=== PATIENT | female | born 1945 | race African-American/Black ===

== ENCOUNTER 2017-03-25 06:56 | Inpatient (IN) ==
[2017-03-25] MEDS ORDERED: NS 1,000 ML IV ONE (07:18)
[2017-03-25] MEDS ORDERED: MORPHINE IV ONE ×2 (07:18→10:46)
[2017-03-25] MEDS ORDERED: ZOFRAN IV ONE (07:18)
[2017-03-25 07:23] LABS: MANUAL DIFF NEEDED? NO
[2017-03-25 07:27] LABS: BASO% 0.4 % (0.0-0.8); EOS# 0.15 X1000 (0.0-0.7); EOS% 1.9 % (0.0-10.0); HEMATOCRIT 38.9 % (37.0-47.0); HEMOGLOBIN 12.9 g/dL (12.0-16.0); IMM GRAN# 0.02 X1000 (0.0-0.04); IMM GRAN% 0.3 % (0.0-0.5); LYMPH# 2.08 X1000 (1.2-3.4); LYMPH% 26.5 % (20.5-51.1); MCH 28.6 PG (27-31); MCHC 33.2 g/dL (33-37); MCV 86.3 FL (81-99); MONO# 0.58 X1000 (0.11-0.59); MONO% 7.4 % (1.7-9.3); MPV 12.1 FL (7.4-10.4); NEUT% 63.5 % (42.2-75.2); PLT 271 X1000 (130-400); RBC 4.51 XMIL (4.2-5.4)
--- NOTE | 2017-03-25 07:33 | PROVIDER DOCUMENTATION ---
HPI-Abdominal Pain/GI Problem - General Chief Complaint: Abdominal Pain Stated Complaint: VOMITING/ABD PAIN Time Seen by Provider: 03/25/17 07:10 Source: patient, family Allergies/Adverse Reactions: Patient Allergies Allergy/AdvReac Type Severity Reaction Status Date / Time No Known Allergies Allergy Verified 03/25/17 07:08 - History of Present Illness-ABD Nature of Presenting Problems: Reports epigastric pain since 2 days ago with V X 1 GEOPH[employer]ICAL [employer]OSPECTING [employer]MIT [employer]ENT. Denies F/C/CP/SOB/ dysuria. Reports h/o the same in the past, but could not tell the diagnosis. Reports h/o cardiac stent X 5 years ago. Denies cardiac issues since then. Abdominal Pain Onset Location: reports: epigastric Pain Radiation: reports: no radiation Quality of Pain: reports: aching, cramping, sharp Severity in ED: reports: moderate Onset/Duration: reports: 2 days ago Timing: reports: still present Activities at Onset: reports: none, light activity Exposure to sick contacts?: No Modifying Factors: improves with: nothing Associated Symptoms: reports: malaise, vomiting. denies: chest pain, constipation, cough, dizziness, rash, seizure, shortness of breath, trouble walking Dark Stools Present?: reports: none noticed Rectal Bleeding: reports: none # of Diarrhea Episodes: 0 Rectal Pain: reports: none # of Vomiting Episodes: 1 Emesis Description: reports: none Bruising or Bleeding Gums?: No Similar Symptoms Previously?: Yes Recently seen or treated by another doctor?: No Review of Systems - Adult - REVIEW OF SYSTEMS - ADULT Constitutional: reports: no symptoms reported Eyes: reports: no symptoms reported Ears, Nose, Mouth & Throat: reports: no symptoms reported Cardiovascular: reports: no symptoms reported. denies: chest pain, orthopnea, PND, syncope Respiratory: reports: no symptoms reported. denies: cough Gastrointestinal: reports: see HPI, abdominal pain, nausea, vomiting. denies: diarrhea Genitourinary: reports: no symptoms reported Musculoskeletal: reports: no symptoms reported Integumentary: reports: no symptoms reported Neurological: reports: no symptoms reported Psychiatric: reports: no symptoms reported Endocrine: reports: no symptoms reported Hematologic/Lymphatic: reports: no symptoms reported Allergic/Immunologic: reports: no symptoms reported All Other Systems: Reviewed and Negative Past History - Adult - PAST MEDICAL HISTORY-ADULT Review of Records: reports: Old Records Reviewed, Nursing Assessment Review, Medications Reviewed, Social history reviewed & non-contributory. Physical Exam-General - PHYSICAL EXAM-ADULT Initial Vital Signs Reviewed: Yes - CONSTITUTIONAL General Appearance: appears well, alert, no apparent distress - EYES Eyes: PERRL/EOMI, pink conjunctivae - HEAD, EARS, NOSE, MOUTH & THROAT HENMT: normocephalic/atraumatic, moist mucous membranes - NECK Neck: non-tender, full range of motion, supple - RESPIRATORY Respiratory: chest non-tender, lungs clear, normal breath sounds, no pleuratic chest pain, no respiratory distress, no accessory muscle use - CARDIOVASCULAR Cardiovascular: normal peripheral pulses, regular rate, rhythm, no edema, no gallop, no JVD, no murmur - GASTROINTESTINAL (ABDOMEN) Abdominal Exam: normal bowel sounds, soft, no organomegaly, tenderness ( Diffused epigastric tenderness, no guarding and no rebound.). negative: abdominal bruit, distended, guarding, rigid, rebound, McBurney's point tenderness, Guerrero's sign, Rovsing's sign - LYMPHATIC Lymphatic: no adenopathy - MUSCULOSKELETAL Back Exam: normal inspection, no CVA tenderness Extremity: normal range of motion, non-tender, normal gait, normal inspection - SKIN Integumentary: normal color, normal turgor, warm/dry - NEUROLOGIC Neurologic: no motor/sensory deficits - PSYCHIATRIC Psych/Mental Status: normal mood/affect, normal thought content, normal thought process, oriented x 3 Progress - PLAN OF CARE/RESULTS Progress/Plan/Lab Results: Vital Signs - 8 hr 03/25/17 07:04 Temperature 98.2 F Pulse Rate 77 Respiratory Rate 16 Blood Pressure 179/98 O2 Sat by Pulse Oximetry 95 Laboratory Results - last 24 hr 03/25/17 07:15 WBC 7.85 RBC 4.51 Hgb 12.9 Hct 38.9 MCV 86.3 MCH 28.6 MCHC 33.2 RDW Std Deviation 16.0 H Plt Count 271 MPV 12.1 H Immature Gran % (Auto) 0.3 Neut % (Auto) 63.5 Lymph % (Auto) 26.5 [place] % (Auto) 7.4 Eos % (Auto) 1.9 Baso % (Auto) 0.4 Immature Gran # (Auto) 0.02 Neut # (Auto) 4.99 Lymph # (Auto) 2.08 [place] # (Auto) 0.58 Eos # (Auto) 0.15 Baso # (Auto) 0.03 Orders Category Date Time Status Saline Loc DIRECTED Care 03/25/17 07:10 Active NPO Diet 03/25/17 07:10 Active AMYLASE [CHEM] Stat Lab 03/25/17 07:15 Received BNP [PRO B-NATRIURETIC PEPTIDE] Stat Lab 03/25/17 07:15 Received CBC WITH ELECTRONIC DIFF [HEME] Stat Lab 03/25/17 07:15 Completed COMPREHENSIVE METABOLIC PANEL [CHEM] Stat Lab 03/25/17 07:15 Received D-DIMER [address] [COAG] Stat Lab 03/25/17 07:15 Received LIPASE [CHEM] Stat Lab 03/25/17 07:15 Received MAGNESIUM [CHEM] Stat Lab 03/25/17 07:15 Received TROPONIN T Stat Lab 03/25/17 07:[address] W/POSS RFLX CULT [URINALYSIS] Stat Lab 03/25/17 07:21 Ordered 0.9% Sodium Chloride Inj [Ns] 1,000 ml Med 03/25/17 07:18 Active IV 250 mls/hr Morphine Med 03/25/17 07:18 Discontinued 4 mg IV NOW ONE Ondansetron [Zofran] Med 03/25/17 07:18 Discontinued 4 mg IV NOW ONE Result Diagrams: 03/25/17 07:15 03/25/17 07:15 - REASSESSMENT Reassessment #1 Time Reassessed: 09:37 Status: improving (Pt is stable. Will admit.) - CT/MRI 1 CT Study: Abdomen Impression: Abnormal CT Results: CT chest, A+P - early or partial SBO. No PE. - CONSULTS/PCP/HOSPITALIST Notification #1 *Consult/PCP/Hospitalist*: Melquiades Time Discussed: 09:38 Consult Disposition: Admit Departure - Departure Date of Disposition Decision: 03/25/17 Time of Disposition Decision: 09:38 DIAGNOSIS: Partial small bowel obstruction Disposition: ADMITTED INPATIENT 09 Certified Medical Emergency: Emergent Condition: Stable Referrals and Follow-Ups: Jose Peralta MD [Primary Care Provider] - - Critical Care Note This patient required my direct & personal management of CC.: No
--- NOTE | 2017-03-25 07:39 | EKG Report ---
Test Performed on : 03/25/2017 07:37:51 AM Test Reason : abdominal pain Blood Pressure : / mmHG Vent. Rate : 085 BPM Atrial Rate : 085 BPM P-R Int : 126 ms QRS Dur : 084 ms QT Int : 384 ms P-R-T Axes : 038 -10 089 degrees QTc Int : 456 ms Normal sinus rhythm. Inferior infarct , age undetermined Possible Anterior infarct , age undetermined Abnormal ECG No previous ECGs available Unconfirmed Result
[2017-03-25 07:46] LABS: BILIRUBIN URINE NEGATIVE (NEGATIVE); BLOOD URINE TRACE (NEGATIVE); CLARITY CLEAR (CLEAR); COLOR YELLOW; GLUCOSE URINE NEGATIVE (NEGATIVE); LEUKOCYTES URINE NEGATIVE (NEGATIVE); NITRITE URINE NEGATIVE (NEGATIVE); PROTEIN URINE 1+(30 mg/dL) mg/dL (NEGATIVE); UROBILINOGEN URINE NORMAL
[2017-03-25 07:52] LABS: AGAP 14; ALBUMIN 4.5 g/dL (3.5-5.0); ALKALINE PHOSPHATASE 106 U/L (32-104); AMYLASE 125 U/L (20-200); BUN 22 mg/dL (8-22); CALCIUM 9.7 mg/dL (8.8-10.2); CHLORIDE 98 mmol/L (98-107); COSMO 279; GOT 21 U/L (10-30); GPT 18 U/L (10-36); LIPASE 33 U/L (13-60); SODIUM 137 mmol/L (136-145); TCO2 25 mmol/L (25-35); TOTAL PROTEIN 8.4 g/dL (6.3-8.3)
[2017-03-25 07:52] LABS: URINE CULTURE PL NEEDED? YES; URINE EPITHELIAL CELLS >10 /HPF (<10); URINE RBC <10 /HPF (<10); URINE WBC <10 /HPF (<10)
[2017-03-25 07:53] LABS: URINE SOURCE CLEAN CATCH
--- NOTE | 2017-03-25 09:18 | ED EKG INTERP ---
This chart was entered by Brenda Nagel Scribe, acting as scribe for Candido Mendez MD. EKG Interpretation - EKG Time of EKG reading by physician:: 07:37 EKG Read and Signed by:: Candido Mendez EKG Interpretation (*Must complete 3 of following elements*): Abnormal Rate: 85 Rhythm: normal sinus rhythm Wagoner: normal QRS: normal ME Interval: normal ST Wave: normal Comments: infeior infarct, possible anterior infarct, age undetermined This chart was documented by the indicated scribe, (Brenda Nagel Scribe) and accurately reflects the services I performed and decisions made by me, Candido Mendez MD, as attested by the provider's signature.
--- NOTE | 2017-03-25 09:27 | Diag Imaging Result Doc PS360 ---
EXAM: ABD/PELVIS/PULM ARTERIES HISTORY: Epigastric pain with elevated D-dimer TECHNIQUE: COMPARISON: 02/19/2012 FINDINGS: Chest: No pleural effusions. No cardiomegaly. No thoracic aortic aneurysm or dissection. Normal opacification of the pulmonary arteries and their major branches. No consolidation. No bronchiectasis. Abdomen and pelvis with intravenous contrast: There is fatty infiltration of the liver. Normal spleen, pancreas, gallbladder, and adrenal glands. Normal enhancement of the kidneys. No hydronephrosis. Moderate atherosclerosis. No aneurysmal dilatation to the aorta. There are several dilated loops of small bowel in the lower left mid abdomen. Normal appendix. No abscess. No free air. The urinary bladder is mildly distended and appears normal. There is a small amount of free fluid in the pelvis. Normal uterus and ovaries. IMPRESSION: Chest: 1. No pulmonary emboli 2. No pneumonia Abdomen and pelvis: 1. Early or partial small bowel obstruction 2. Mild fatty infiltration of the liver Electronically signed by Irvin Zelaya 03/25/2017 9:24 AM
--- NOTE | 2017-03-25 10:22 | Diag Imaging Result Doc PS360 ---
EXAM: CHEST-PORTABLE HISTORY: NG tube placement TECHNIQUE: Portable COMPARISON: 07/25/2013 FINDINGS: The lungs are well expanded. The heart is not enlarged. The vessels are not distended. No consolidation. No pleural effusions identified. A nasogastric tube overlies the esophagus and stomach. IMPRESSION: Nasogastric tube overlies the esophagus and stomach. Electronically signed by Irvin Zelaya 03/25/2017 10:19 AM
[2017-03-25] MEDS ORDERED: ZOFRAN IV PRN (12:17)
[2017-03-25] MEDS ORDERED: CHLORASEPTIC SPRAY MT PRN (12:28)
[2017-03-25] MEDS: SODIUM CHLORIDE 0.9% INJ SCH (13:08)
[2017-03-25] MEDS: NS 1,000 ML IV SCH ×2 (13:08→21:00)
[2017-03-25] MEDS: PROTONIX IV SCH (13:08)
--- NOTE | 2017-03-25 13:09 | HISTORY AND PHYSICAL ---
PRIMARY CARE PHYSICIAN: Dr. Jose Peralta. CHIEF COMPLAINT: Epigastric pain with vomiting x1 prior to arrival. HISTORY OF PRESENTING ILLNESS: This is a 71-year-old female who presents to [facility] ER with complaints of epigastric abdominal pain for 2 days with vomiting once prior to arrival. States her last bowel movement was 2 days ago. Abdomen and pelvic CT was obtained that showed the chest with no pulmonary emboli, no pneumonia, abdomen and pelvis with an early or partial small-bowel obstruction, and a mild fatty infiltration of the liver. So, she was admitted for further evaluation and treatment. It is noted that while in the ER they placed a nasogastric tube due to her right naris to low intermittent suction. PAST MEDICAL HISTORY: HI, hypertension, hyperlipidemia, and GERD. PAST SURGICAL HISTORY: Bilateral tubal ligation and heart stent placement. FAMILY HISTORY: Noncontributory. SOCIAL HISTORY: She currently lives with family. Is a half-pack a day smoker and has done so since she was 19 years old. No alcohol or illicit drugs. ALLERGIES: She has no known drug allergies. HOME MEDICATIONS: We will obtain a current list. The patient is currently n.p.o., so we will hold them at this time, but we will restart as appropriate once they are verified. LABORATORY DA: Showed a white blood cell count of 7.85, hemoglobin 12.9, hematocrit 38.9, platelets 271,000. D-dimer was 0.68. Sodium of 137, potassium 4.0, chloride 98 , CO2 of 25, BUN 22, creatinine 0.9, glucose 131, magnesium 2.1. Troponin less than 0.010. proBNP of 139. Amylase 125, lipase 33. Urinalysis was negative except for 2+ bacteria. Abdomen, pelvic, and pulmonary artery CT showed on impression of the chest no pulmonary emboli, no pneumonia. Abdomen and pelvis with early or partial small-bowel obstruction and mild fatty infiltration of the liver. Chest x-ray showed that the nasogastric tube overlies the esophagus and stomach. EKG showed normal sinus rhythm at 85. REVIEW OF SYSTEMS: She denied any fever, chills, blurred vision, chest pain, coughing, or shortness of breath. She was positive for epigastric abdominal pain, some nausea and vomiting. Denied any diarrhea, burning or hurting with urination. States she does have chronic constipation and her last bowel movement was 2 days ago. PHYSICAL EXAMINATION: VITAL SIGNS: Showed a temperature of 98.2 degrees, pulse 77, respirations 16, blood pressure 179/98, and saturating 95% on room air. GENERAL: This is a 71-year-old female who is lying in the bed , and answers questions appropriately. HEENT: Normocephalic and atraumatic. The pupils are equal, round, and reactive to light. The extraocular movements are intact. The oropharynx and nares are clear. NECK: Supple. LUNGS: Clear to auscultation bilaterally, with equal lung expansion and chest wall movement. HEART: Regular rate and rhythm. No murmurs, rubs, or gallops. ABDOMEN: Abdomen is soft. There is tenderness to the epigastric area, but she states it has improved since she received IV pain medicine. Bowel sounds are hypoactive, but present x4 quadrants. Nasogastric tube to right naris in place to low intermittent suction. EXTREMITIES: No clubbing, cyanosis, or edema. NEUROLOGICAL: The cranial nerves 2-12 are grossly intact. ASSESSMENT: 1. Epigastric abdominal pain. 2. A partial small-bowel obstruction. 3. Gastroesophageal reflux disease. 4. Tobacco abuse. PLAN: She was admitted to the medical unit, placed on telemetry, n.p.o., NG to low intermittent suction. Will place on morphine 2 mg q.4 hours p.r.n., Zofran 4 mg IV q.4 hours p.r.n., Protonix 40 mg IV q.24, and normal saline 125 mL an hour. We will recheck laboratories in the a.m., and a flat and upright of the abdomen in the a.m. also. Pt is a full code. Dictated by VAL Lawler for Hakeem Arnett MD cc: VAL Lawler MD Wayne E. Thomas, MD MTDD
[2017-03-25] MEDS: MORPHINE IV PRN ×2 (15:05→21:00)
[2017-03-26] MEDS: NS 1,000 ML IV SCH ×2 (04:16→13:35)
[2017-03-26 06:24] LABS: MANUAL DIFF NEEDED? NO
[2017-03-26] MEDS ORDERED: NORCO-5 PO PRN (06:33)
[2017-03-26] MEDS ORDERED: ULTRACET 37.5MG/325MG PO PRN (06:33)
[2017-03-26 06:57] LABS: BASO% 0.3 % (0.0-0.8); EOS# 0.16 X1000 (0.0-0.7); EOS% 2.5 % (0.0-10.0); LYMPH# 2.42 X1000 (1.2-3.4); LYMPH% 38.1 % (20.5-51.1); MCH 28.2 PG (27-31); MCHC 32.3 g/dL (33-37); MCV 87.6 FL (81-99); MONO# 0.56 X1000 (0.11-0.59); MONO% 8.8 % (1.7-9.3); MPV 11.9 FL (7.4-10.4); NEUT% 50.3 % (42.2-75.2); PLT 203 X1000 (130-400); RBC 3.54 XMIL (4.2-5.4)
[2017-03-26 06:59] LABS: AGAP 12; BUN 15 mg/dL (8-22); CHLORIDE 105 mmol/L (98-107); COSMO 278; POTASSIUM 3.4 mmol/L (3.5-5.1); SODIUM 139 mmol/L (136-145); TCO2 22 mmol/L (25-35)
--- NOTE | 2017-03-26 08:10 | Diag Imaging Result Doc PS360 ---
ABDOMEN FLAT/UPRIGHT - 03/26/2017 INDICATION: PSBO TECHNIQUE: Two views COMPARISON: CT abdomen pelvis 03/25/2017 FINDINGS: There has been apparent improvement in the mildly distended loops of small bowel in the lower abdomen and pelvis. Colon and rectal gas patterns are normal. Normal quantity of stool. No free air. IMPRESSION: No acute disease. Electronically signed by Santi Espitia 03/26/2017 8:07 AM
--- NOTE | 2017-03-26 08:31 | PROGRESS NOTE ---
DATE: 03/26/2017 SUBJECTIVE: REVIEW OF SYSTEMS: The patient notes that she is feeling much better. She denies any abdominal pain. Currently, denies any nausea or vomiting, denies any dysuria, frequency, and states that her throat pain is tremendously better after the NG tube was removed. PHYSICAL EXAMINATION: Temperature 98, pulse 68, respiratory rate 18, BP 167/68. General: Patient is awake, alert, oriented. She is currently in no respiratory distress. She is pleasant to talk with. Neck supple. CV: Regular rate. Chest relatively clear. Abdomen soft. Extremities: Moves all extremities. Neurologic: No focal changes. Skin warm and dry. No rashes. LABORATORY DATA: CBC and CMP essentially normal. Hemoglobin and hematocrit 10 and 31. Potassium 3.4, calcium 8.0. ASSESSMENT: 1. Epigastric abdominal pain, improved. 2. Partial small bowel obstruction appears to be improved. KUB is improving. She is noted to have scattered bowel sounds which is an improvement from yesterday's exam of no bowel sounds. 3. Chronic reflux. 4. Chronic tobacco abuse. 5. Hypertension. 6. Hypocalcemia. 7. Mild hypokalemia. PLAN: We will restart patient's home medications. We will advance to a full liquid diet this morning. If she tolerates this, then we will continue to a GI soft diet. We will restart her home medicines. Further orders as needed. Hopefully, home in the next 1-2 days. cc: Hakeem Arnett MD
[2017-03-26] MEDS ORDERED: COZAAR PO SCH (09:00)
[2017-03-26] MEDS ORDERED: NEXIUM PO SCH (09:00)
[2017-03-26] MEDS ORDERED: LASIX PO SCH (09:00)
[2017-03-26 11:11] VITALS: BP 156/68
[2017-03-26] MEDS: SODIUM CHLORIDE 0.9% INJ SCH (13:35)
[2017-03-26] MEDS: PROTONIX IV SCH (13:35)
[2017-03-26] MEDS ORDERED: LIPITOR PO SCH (21:00)
--- NOTE | 2017-03-28 05:17 | DISCHARGE SUMMARY ---
ADMISSION DATE: 03/25/2017 DISCHARGE DATE: 03/26/2017 DISCHARGE DIAGNOSES: 1. Partial small bowel obstruction, resolved. 2. Gastroesophageal reflux disease. 3. Hypertension. 4. Chronic tobacco abuse. 5. Abdominal pain. CONSULTATIONS: None. PROCEDURES: None. BRIEF HOSPITAL COURSE: Patient is a patient of Dr. Jose Peralta. She was admitted to the hospital secondary to partial small bowel obstruction. She had an uneventful hospital course. She had some nausea, vomiting, abdominal pain, had an NG tube placed. Over the next several hours, her abdominal pain resolved. Her nausea, vomiting resolved. NG tube was removed. She was advanced on a diet. On discharge, she was awake, alert. She was in no distress. DISPOSITION: Patient will be discharged home, as she is eating and drinking a regular diet without any difficulties. She will follow up outpatient with Dr. Peralta in the next couple of days. TIME SPENT: 35 minutes was spent in discharge planning and instructions. No changes were made in her home medications. cc: Hakeem Arnett MD
== END 2017-03-26 16:45 | disposition home or self-care (01) ==
LOC: P.ED 06:56 → P.MEDSURG 06:57
PROVIDERS: ATTEND Family Medicine